=== PATIENT | female | born 1995 | race Caucasian/White ===

== ENCOUNTER 2017-01-18 07:12 | Inpatient (IN) | payer BC ==
--- NOTE | 2017-01-18 09:58 | PCM.LDHP ---
L&D History of Present Illness - General Date of Service: 01/18/17 Admit Problem/Dx: Admission Diagnosis/Problem Admission Diagnosis/Problem Source of Information: Patient History Limitations: Reports: No Limitations - History of Present Illness Introduction:: Patient is a 21 y/o at 39 1/7 wks who presents this AM in labor. Contractions started last night and were very intermittent. Now stronger and slightly more patterned. No LOF. - Related Data Allergies/Adverse Reactions: Allergies Allergy/AdvReac Type Severity Reaction Status Date / Time codeine AdvReac Vomiting Verified 01/18/17 10:37 Home Medications: Home Meds Pnv No.122/Iron/Folic Acid [ Multi Tablet] 1 each PO DAILY 01/18/17 [ History] Past Medical History [employer]GEON History: Reports: , Other (See Below) : 2 Para: 1 - Past Surgical History HEENT Surgical History: Reports: Oral Surgery, Tonsillectomy Female Surgical History: Reports: Section Social & Family History - Family History Family Medical History: Noncontributory - Tobacco Use Smoking Status *Q: Never Smoker - Caffeine Use Caffeine Use: Reports: Coffee Other Caffeine Use: 1 daily - Alcohol Use Alcohol Use History: No - Recreational Drug Use Recreational Drug Use: No H&P Review of Systems - Review of Systems: Review Of Systems: See Below General: Reports: No Symptoms Pulmonary: Reports: No Symptoms Cardiovascular: Reports: No Symptoms Gastrointestinal: Reports: No Symptoms Genitourinary: Reports: No Symptoms Musculoskeletal: Reports: No Symptoms L&D Exam - Exam Exam: See Below - Vital Signs Vital Signs: Last Vital Signs Temp 37.0 C 01/18/17 08:10 Pulse 69 01/18/17 08:10 Resp 18 01/18/17 08:10 BP 124/69 01/18/17 08:10 Pulse Ox 100 01/18/17 08:10 Weight: 72.03 kg - OB Specific Contraction Intensity: Mild to Moderate Movement: Active Heart Tones: Present Heart Tones per Min: 125 Heart Rate (FHR) Variability: Moderate (6-25 bmp) Presentation: Vertex - Carrillo Score Carrillo Score Cervix Position: Posterior Carrillo Score Consistency: Soft Carrillo Score Effacement: >80% Carrillo Score Dilation: 3-4 cm Carrillo Score Infant's Station: -1 ,0 Carrillo Score Total: 9 - Exam General: Alert, Oriented, Cooperative Lungs: Clear to Auscultation, Normal Respiratory Effort Cardiovascular: Regular Rate, Regular Rhythm Abdomen: Soft Genitourinary: Normal external exam Extremities: Normal Inspection Skin: Warm, Dry, Intact - Patient Data Result Diagrams: 01/18/17 10:45 - Problem List (1) 39 weeks gestation of SNOMED Code(s): 61752693 ICD Code: Z3A.39 - 39 WEEKS GESTATION OF Status: Acute Current Visit: Yes (2) History of SNOMED Code(s): 219139950 ICD Code: Z98.891 - HISTORY OF UTERINE SCAR FROM PREVIOUS SURGERY Status: Acute Current Visit: Yes (3) Desires (vaginal after ) trial SNOMED Code(s): 488560614, 776792667 ICD Code: O34.219 - MATERNAL CARE FOR UNSP TYPE SCAR FROM PREVIOUS DEL Status: Acute Current Visit: Yes (4) Rh negative state in antepartum period SNOMED Code(s): 291517730, 061270696 ICD Code: O09.899 - SUPERVISION OF OTHER HIGH RISK PREGNANCIES, UNSP TRIMESTER Status: Acute Current Visit: Yes Qualifiers: Trimester: third trimester Qualified Code(s): O09.893 - Supervision of other high risk pregnancies, third trimester Problem List Initiated/Reviewed/Updated: Yes Orders Last 24hrs: Active Orders 24 hr Category Date Time Status Regular Diet [DIET] Diet 01/18/17 Breakfast Active Assessment/Plan Comment:: 21 y/o at 39 1/7 wks presents in early labor * CBC and T&S * GBS negative, no need for antibiotics * Pain management per patient preference, prefers unmedicated * Continuous monitoring since TOLAC. Aware of risks/benefits of TOLAC * Rh negative, assess baby blood type after delivery to see if additional Rhogam warranted * Anticipate Radha Mina MD
[2017-01-18] MEDS ORDERED: Nalbuphine 20 MG/1 ML Amp IVPUSH PRN (10:34)
[2017-01-18] MEDS ORDERED: Sodium Chloride 0.9% 10 ML Syringe FLUSH PRN (10:34)
[2017-01-18] MEDS ORDERED: Ondansetron 4 MG/2 ML SDV IVPUSH PRN (10:34)
[2017-01-18] MEDS ORDERED: Lactated Ringers 1,000 ML IV SCH (10:45)
[2017-01-18] MEDS ORDERED: Oxytocin/Lactated Ringers 10 UNIT/1,000 ML BAG IV SCH (10:45)
--- NOTE | 2017-01-18 13:13 | PCM.PREANE ---
Preanesthetic Assessment - Anesthesia/Transfusion/Family Hx Anesthesia History: Prior Anesthesia Without Reaction Family History of Anesthesia Reaction: No Transfusion History: No Prior Transfusion(s) Intubation History: History of Difficulty Intubation - Review of Systems General: No Symptoms Pulmonary: No Symptoms Cardiovascular: No Symptoms Gastrointestinal: Other (GERD during ) Neurological: No Symptoms Other: Reports: None - Physical Assessment NPO Status Date: 01/18/17 NPO Status Time: 12:40 O2 Sat by Pulse Oximetry: 100 Respiratory Rate: 18 Vital Signs: Last Vital Signs Temp 37.0 C 01/18/17 08:10 Pulse 69 01/18/17 08:10 Resp 18 01/18/17 08:10 BP 124/69 01/18/17 08:10 Pulse Ox 100 01/18/17 08:10 Height: 1.68 m Weight: 72.03 kg ASA Class: 2 Mental Status: Alert & Oriented x3 Airway Class: Mallampati = 1 Dentition: Reports: Normal Dentition Thyro-Mental Finger Breadths: 3 Mouth Opening Finger Breadths: 3 ROM/Head Extension: Full Lungs: Clear to auscultation, Normal respiratory effort Cardiovascular: Regular Rate, Regular Rhythm - Lab Values: Laboratory Last Values WBC 11.17 K/mm3 (3.98-10.04) H 01/18/17 10:45 RBC 5.22 M/mm3 (3.98-5.22) 01/18/17 10:45 Hgb 14.6 gm/L (11.2-15.7) 01/18/17 10:45 Hct 43.9 % (34.1-44.9) 01/18/17 10:45 MCV 84.1 fl (79.4-94.8) 01/18/17 10:45 MCH 28.0 pg (25.6-32.2) 01/18/17 10:45 MCHC 33.3 g/dl (32.2-35.5) 01/18/17 10:45 RDW Std Deviation 41.6 fL (36.4-46.3) 01/18/17 10:45 Plt Count 311 K/mm3 (182-369) 01/18/17 10:45 MPV 10.4 fl (9.4-12.3) 01/18/17 10:45 Blood Type B NEGATIVE 01/18/17 10:45 Gel Antibody Screen Positive 01/18/17 10:45 - Allergies Allergies/Adverse Reactions: Allergies Allergy/AdvReac Type Severity Reaction Status Date / Time codeine AdvReac Vomiting Verified 01/18/17 10:37 - Blood Blood Available: No Product(s) Available: None - Anesthesia Plan Pre-Op Medication Ordered: None - Acknowledgements Anesthesia Type Planned: Epidural Pt an Appropriate Candidate for the Planned Anesthesia: Yes Alternatives and Risks of Anesthesia Discussed w Pt/Guardian: Yes Pt/Guardian Understands and Agrees with Anesthesia Plan: Yes PreAnesthesia Questionnaire [employer]IS[employer] P[employer]ER History: Reports: , Other (See Below) Other OB/BYN History: x1 - Past Surgical History HEENT Surgical History: Reports: Oral Surgery, Tonsillectomy - SUBSTANCE USE Smoking Status *Q: Never Smoker Second Hand Smoke Exposure: No Recreational Drug Use History: No - HOME MEDS Home Medications: Home Meds Pnv No.122/Iron/Folic Acid [ Multi Tablet] 1 each PO DAILY 01/18/17 [ History] - CURRENT (IN HOUSE) MEDS Current Meds: Current Medications Lactated Ringer's (Ringers, Lactated) 1,000 mls @ 30 mls/hr IV ASDIRECTED LUCIA Oxytocin/Lactated Ringer's (Pitocin In Lr 10 Units/1,000 Ml) 10 unit in 1,000 mls @ 500 mls/hr IV TITRATE LUCIA PRN Reason: Protocol Nalbuphine HCl (Nubain) 10 mg IVPUSH Q2H PRN PRN Reason: Pain (moderate 4-6) Ondansetron HCl (Zofran) 4 mg IVPUSH Q4H PRN PRN Reason: Nausea/Vomiting Sodium Chloride (Saline Flush) 10 ml FLUSH ASDIRECTED PRN PRN Reason: Keep Vein Open
--- NOTE | 2017-01-18 16:39 | PCM.PNLD ---
Labor Progress Note - VS & Meds Vital Signs: Last Vital Signs Temp 37.0 C 01/18/17 08:10 Pulse 69 01/18/17 08:10 Resp 18 01/18/17 13:13 BP 124/69 01/18/17 08:10 Pulse Ox 100 01/18/17 13:13 Active Medications: Current Medications Lactated Ringer's (Ringers, Lactated) 1,000 mls @ 30 mls/hr IV ASDIRECTED LUCIA Oxytocin/Lactated Ringer's (Pitocin In Lr 10 Units/1,000 Ml) 10 unit in 1,000 mls @ 500 mls/hr IV TITRATE LUCIA PRN Reason: Protocol Nalbuphine HCl (Nubain) 10 mg IVPUSH Q2H PRN PRN Reason: Pain (moderate 4-6) Ondansetron HCl (Zofran) 4 mg IVPUSH Q4H PRN PRN Reason: Nausea/Vomiting Sodium Chloride (Saline Flush) 10 ml FLUSH ASDIRECTED PRN PRN Reason: Keep Vein Open - Uterine Contractions Uterine Monitoring Mode: External [place] Contraction Intensity: Moderate Uterine Resting Tone: Soft - Monitoring Monitor Mode: External Ultrasound Heart Rate (FHR) Baseline: 125 Heart Rate (FHR) Variability: Moderate (6-25 bmp) Accelerations: Present, 15x15 Decelerations: None Strip Review: Category I - Vaginal Exam Dilation (cm): 4 Effacement (Percent): 90 Station: 0 Cervical Position: Posterior - Labor Progress (Free Text) Labor Progress: Patient doing well. Contractions still somewhat irregular, but patient doing well. Will continue current observation/management. Assess again in another 3- 4 hours.
--- NOTE | 2017-01-18 19:42 | PCM.PNLD ---
Labor Progress Note - VS & Meds Vital Signs: Last Vital Signs Temp 37.0 C 01/18/17 08:10 Pulse 69 01/18/17 08:10 Resp 18 01/18/17 13:13 BP 124/69 01/18/17 08:10 Pulse Ox 100 01/18/17 13:13 Active Medications: Current Medications Lactated Ringer's (Ringers, Lactated) 1,000 mls @ 30 mls/hr IV ASDIRECTED LUCIA Oxytocin/Lactated Ringer's (Pitocin In Lr 10 Units/1,000 Ml) 10 unit in 1,000 mls @ 500 mls/hr IV TITRATE LUCIA PRN Reason: Protocol Nalbuphine HCl (Nubain) 10 mg IVPUSH Q2H PRN PRN Reason: Pain (moderate 4-6) Ondansetron HCl (Zofran) 4 mg IVPUSH Q4H PRN PRN Reason: Nausea/Vomiting Sodium Chloride (Saline Flush) 10 ml FLUSH ASDIRECTED PRN PRN Reason: Keep Vein Open - Uterine Contractions Uterine Monitoring Mode: External [place] Contraction Intensity: Moderate to Strong Uterine Resting Tone: Soft - Monitoring Monitor Mode: External Ultrasound Heart Rate (FHR) Baseline: 130 Heart Rate (FHR) Variability: Moderate (6-25 bmp) Accelerations: Present, 15x15 Decelerations: None Strip Review: Category I - Vaginal Exam Dilation (cm): 5-6 Effacement (Percent): 90 Station: 0 Cervical Position: Midposition - Labor Progress (Free Text) Labor Progress: Patient doing well. Now 5-6 cm. Continue present management. Defer AROM for now. Tracing reassuring. Some gaps due to patient being up/moving. Radha Mina MD
[2017-01-18] MEDS ORDERED: Lidocaine 1% 50 ML MDV INJECT ONE (19:51)
[2017-01-18] MEDS ORDERED: Lidocaine 1% 50 ML MDV ONE (19:57)
--- NOTE | 2017-01-19 05:30 | PCM.PNLD ---
Labor Progress Note - VS & Meds Vital Signs: Last Vital Signs Temp 37.0 C 01/18/17 08:10 Pulse 69 01/18/17 08:10 Resp 18 01/18/17 13:13 BP 124/69 01/18/17 08:10 Pulse Ox 100 01/18/17 13:13 Active Medications: Current Medications Lactated Ringer's (Ringers, Lactated) 1,000 mls @ 30 mls/hr IV ASDIRECTED LUCIA Oxytocin/Lactated Ringer's (Pitocin In Lr 10 Units/1,000 Ml) 10 unit in 1,000 mls @ 500 mls/hr IV TITRATE LUCIA PRN Reason: Protocol Nalbuphine HCl (Nubain) 10 mg IVPUSH Q2H PRN PRN Reason: Pain (moderate 4-6) Ondansetron HCl (Zofran) 4 mg IVPUSH Q4H PRN PRN Reason: Nausea/Vomiting Sodium Chloride (Saline Flush) 10 ml FLUSH ASDIRECTED PRN PRN Reason: Keep Vein Open Discontinued Medications Lidocaine HCl (Xylocaine 1%) 5 ml INJECT ONETIME ONE Stop: 01/18/17 19:52 Lidocaine HCl (Xylocaine 1%) Confirm Administered Dose 50 ml .ROUTE .STK-MED ONE Stop: 01/18/17 19:58 Last Admin: 01/18/17 23:04 Dose: Not Given - Uterine Contractions Uterine Monitoring Mode: External [place] Contraction Intensity: Strong Uterine Resting Tone: Soft - Monitoring Monitor Mode: External Ultrasound Heart Rate (FHR) Baseline: 135 Heart Rate (FHR) Variability: Moderate (6-25 bmp) Accelerations: Present, 15x15 Decelerations: None Strip Review: Category I - Vaginal Exam Dilation (cm): 9 Effacement (Percent): 90 Station: 1 Cervical Position: Anterior - Labor Progress (Free Text) Labor Progress: Have been in contact with L&D nurses overnight and assessing FHR tracing. At 2330 patient still about 5-6 cm and declined AROM. At 0230 she was felt to be 7-8 cm. At 0430 she was thought to be anterior lip. Checked by myself at about 0515 and thought to be 9 cm. AROM done with release of clear fluid. FHR has been reassuring all night. Good accelerations, no decelerations.
[2017-01-19] MEDS: Ibuprofen 600 MG Tab PO PRN ×2 (09:05→17:39)
--- NOTE | 2017-01-19 09:33 | PCM.DEL ---
L & D Note - General Info Date of Service: 01/19/17 - Delivery Note Labor: spontaneous Delivery Outcome: Livebirth Delivery Method: Spontaneous Vaginal Delivery Delivery Mode: Spontaneous Presentation: Left Occiput Anterior (MARYBEL) Nuchal cord: none Anesthesia Type: None Anesthetic: lidocaine (xylocaine) 1% plain Amniotic Fluid Description: Clear Episiotomy Type: None Laceration: 2nd degree Suture type: vicryl Suture size: 2-0 Placenta: spontaneous Cord: 3 vessels Estimated blood loss: 300 Resuscitation needed: Yes : bulb syringe, stimulated, warmed, blanket used, warmer used Score 1 min: 8 Score 5 min: 9 Delivery Comments (Free Text/Narrative):: Patient found to be complete and began pushing. With maternal pushing effort head delivered from an MARYBEL presentation. No nuchal cord present. With gentle downward traction the shoulders and body delivered. Infant placed on maternal abdomen. Cord clamped and cut. Cord blood obtained. Inspection of perineum done with a 2nd degree laceration noted. This was repaired with a 2 -0 vicryl in the typical fashion while awaiting separation of the placenta. At ~25 minutes placenta not yet delivered. Exam showed it to be in the cervix. A hand was placed into the vaginal and placenta grasped within the cervix and extracted. - Patient Data Vitals - most recent: Last Vital Signs Temp 37.0 C 01/18/17 08:10 Pulse 69 01/18/17 08:10 Resp 18 01/18/17 13:13 BP 124/69 01/18/17 08:10 Pulse Ox 100 01/18/17 13:13 Weight - most recent: 72.03 kg Lab Results last 24 hrs: Laboratory Results - last 24 hr 01/18/17 01/18/17 Range/Units 10:45 10:45 WBC 11.17 H (3.98-10.04) K/mm3 RBC 5.22 (3.98-5.22) M/mm3 Hgb 14.6 (11.2-15.7) gm/L Hct 43.9 (34.1-44.9) % MCV 84.1 (79.4-94.8) fl MCH 28.0 (25.6-32.2) pg MCHC 33.3 (32.2-35.5) g/dl RDW Std Deviation 41.6 (36.4-46.3) fL Plt Count 311 (182-369) K/mm3 MPV 10.4 (9.4-12.3) fl Blood Type B NEGATIVE Gel Antibody Screen Positive Med Orders - Current: Current Medications Lactated Ringer's (Ringers, Lactated) 1,000 mls @ 30 mls/hr IV ASDIRECTED LUCIA Oxytocin/Lactated Ringer's (Pitocin In Lr 10 Units/1,000 Ml) 10 unit in 1,000 mls @ 500 mls/hr IV TITRATE LUCIA PRN Reason: Protocol Last Admin: 01/19/17 08:20 Dose: 500 mls/hr, 500 mls/hr Nalbuphine HCl (Nubain) 10 mg IVPUSH Q2H PRN PRN Reason: Pain (moderate 4-6) Ondansetron HCl (Zofran) 4 mg IVPUSH Q4H PRN PRN Reason: Nausea/Vomiting Sodium Chloride (Saline Flush) 10 ml FLUSH ASDIRECTED PRN PRN Reason: Keep Vein Open Discontinued Medications Lidocaine HCl (Xylocaine 1%) 5 ml INJECT ONETIME ONE Stop: 01/18/17 19:52 Last Admin: 01/19/17 08:21 Dose: 50 ml Lidocaine HCl (Xylocaine 1%) Confirm Administered Dose 50 ml .ROUTE .STK-MED ONE Stop: 01/18/17 19:58 Last Admin: 01/18/17 23:04 Dose: Not Given - Problem List & Annotations (1) 39 weeks gestation of SNOMED Code(s): 30600025 Code(s): Z3A.39 - 39 WEEKS GESTATION OF Status: Acute Current Visit: Yes (2) History of SNOMED Code(s): 706128129 Code(s): Z98.891 - HISTORY OF UTERINE SCAR FROM PREVIOUS SURGERY Status: Acute Current Visit: Yes (3) Desires (vaginal after ) trial SNOMED Code(s): 942440485, 692982911 Code(s): O34.219 - MATERNAL CARE FOR UNSP TYPE SCAR FROM PREVIOUS DEL Status: Acute Current Visit: Yes (4) Rh negative state in antepartum period SNOMED Code(s): 744941282, 932345626 Code(s): O09.899 - SUPERVISION OF OTHER HIGH RISK PREGNANCIES, UNSP TRIMESTER Status: Acute Current Visit: Yes Qualifiers: Trimester: third trimester Qualified Code(s): O09.893 - Supervision of other high risk pregnancies, third trimester (5) (vaginal after ) SNOMED Code(s): 733820304 Code(s): O34.219 - MATERNAL CARE FOR UNSP TYPE SCAR FROM PREVIOUS DEL Status: Acute Current Visit: Yes - Problem List Review Problem List Initiated/Reviewed/Updated: Yes - My Orders Last 24 Hours: My Active Orders 01/18/17 10:34 Patient Status [ADT] Routine Activity as Tolerated [RC] PFP Communication Order [RC] ASDIRECTED Notify Provider [RC] PFP Notify Provider [RC] PRN Peripheral IV Care [RC] . DIRECTED Vital Signs [RC] PER UNIT ROUTINE Nalbuphine [Nubain] 10 mg IVPUSH Q2H PRN Ondansetron [Zofran] 4 mg IVPUSH Q4H PRN Sodium Chloride 0.9% [Saline Flush] 10 ml FLUSH ASDIRECTED PRN Electronic Heart Tones Ext w TOCO [WOMSER] Routine Peripheral IV Insertion Adult [OM.PC] Routine Resuscitation Status Routine 01/18/17 10:45 ANTIBODY IDENTIFICATION [BBK] Routine PATIENT RETYPE [BBK] Routine TYPE AND SCREEN [BBK] Routine Lactated Ringers [Ringers, Lactated] 1,000 ml IV ASDIRECTED Oxytocin/Lactated Ringers [Pitocin in LR 10 Units/1,000 ML] 10 unit in 1,000 ml IV TITRATE 01/19/17 Breakfast Regular Diet [DIET] - Assessment Assessment:: 21 y/o G2 now P2002 PPD#0 from at 39 2/7 wks - Plan Plan:: * Routine cares * Encouraged breast feeding * Rh negative, assess baby blood type after delivery * Discharge home in 1-2 days Radha Mina MD
[2017-01-19] MEDS ORDERED: Benzocaine/Menthol 20%-0.5% Spray 56 GM Canister TOP PRN (09:40)
[2017-01-19] MEDS ORDERED: Witch Hazel Medicated Pads 100/Jar TOP PRN (09:40)
[2017-01-19] MEDS ORDERED: Lanolin 100% Cream 7 GM Tube TOP PRN (09:40)
[2017-01-19] MEDS ORDERED: Oxytocin/Lactated Ringers 10 UNIT/1,000 ML BAG IV ONE (10:45)
[2017-01-19] MEDS ORDERED: Oxytocin/Lactated Ringers 10 UNIT/1,000 ML BAG IV SCH (10:55)
[2017-01-19] MEDS: Acetaminophen 325 MG Tab PO PRN ×2 (12:38→22:34)
[2017-01-19] MEDS: Docusate Sodium 100 MG Cap PO PRN (17:39)
--- NOTE | 2017-01-20 00:59 | PCM.PNPP ---
- General Info Date of Service: 01/20/17 Functional Status: Reports: pain controlled, tolerating diet, ambulating, urinating - Review of Systems General: Reports: No Symptoms Pulmonary: Reports: no symptoms Cardiovascular: Reports: No Symptoms Gastrointestinal: Reports: No symptoms Genitourinary: Reports: no symptoms Musculoskeletal: Reports: no symptoms - Patient Data Vital Signs - most recent: Last Vital Signs Temp 36.3 C 01/19/17 20:01 Pulse 90 01/19/17 20:01 Resp 18 01/19/17 20:01 BP 111/64 01/19/17 20:01 Pulse Ox 100 01/19/17 20:01 Weight - most recent: 72.03 kg I&O - last 24 hours: Intake & Output 01/19/17 01/19/17 01/20/17 14:59 22:59 06:59 Intake Total 1999 120 Balance 1999 120 Lab Results - last 24 hrs: Laboratory Results - last 24 hr 01/18/17 Range/Units 10:45 Blood Type B NEGATIVE Gel Antibody Screen Positive Antibody Identification Anti-D Med Orders - Current: Current Medications Acetaminophen (Tylenol) 650 mg PO Q4H PRN PRN Reason: mild pain or fever Last Admin: 01/19/17 22:34 Dose: 650 mg Benzocaine/Menthol (Dermoplast Pain Relief [place]) 0 gm TOP ASDIRECTED PRN PRN Reason: Perineal Comfort Measure Last Admin: 01/19/17 09:48 Dose: 56 gm Docusate Sodium (Colace) 100 mg PO BID PRN PRN Reason: Constipation Last Admin: 01/19/17 17:39 Dose: 100 mg Emollient Ointment (Lansinoh Hpa) 0 gm TOP ASDIRECTED PRN PRN Reason: Sore Nipples Oxytocin/Lactated Ringer's (Pitocin In Lr 10 Units/1,000 Ml) 10 unit in 1,000 mls @ 500 mls/hr IV ASDIRECTED LUCIA PRN Reason: Protocol Last Admin: 01/19/17 10:55 Dose: 500 mls/hr, 500 mls/hr Ibuprofen (Motrin) 600 mg PO Q6H PRN PRN Reason: Mild pain or fever Last Admin: 01/19/17 17:39 Dose: 600 mg Witch [place] (Tucks) 1 pad TOP ASDIRECTED PRN PRN Reason: Hemorrhoid pain Last Admin: 01/19/17 09:48 Dose: 1 tub Discontinued Medications Lactated Ringer's (Ringers, Lactated) 1,000 mls @ 30 mls/hr IV ASDIRECTED LUCIA Oxytocin/Lactated Ringer's (Pitocin In Lr 10 Units/1,000 Ml) 10 unit in 1,000 mls @ 500 mls/hr IV TITRATE LUCIA PRN Reason: Protocol Last Admin: 01/19/17 08:20 Dose: 500 mls/hr, 500 mls/hr Oxytocin/Lactated Ringer's (Pitocin In Lr 10 Units/1,000 Ml) Confirm Administered Dose 10 unit in 1,000 mls @ as directed IV .[employer] ONE Stop: 01/19/17 10:46 Last Admin: 01/19/17 11:33 Dose: Not Given Lidocaine HCl (Xylocaine 1%) 5 ml INJECT ONETIME ONE Stop: 01/18/17 19:52 Last Admin: 01/19/17 08:21 Dose: 50 ml Lidocaine HCl (Xylocaine 1%) Confirm Administered Dose 50 ml .ROUTE .STK-MED ONE Stop: 01/18/17 19:58 Last Admin: 01/18/17 23:04 Dose: Not Given Nalbuphine HCl (Nubain) 10 mg IVPUSH Q2H PRN PRN Reason: Pain (moderate 4-6) Ondansetron HCl (Zofran) 4 mg IVPUSH Q4H PRN PRN Reason: Nausea/Vomiting Sodium Chloride (Saline Flush) 10 ml FLUSH ASDIRECTED PRN PRN Reason: Keep Vein Open - Infant Interaction Disposition, : [place] in Room with Family Infant Interaction: Holding Infant Feeding: Breastfed ; Nursed Well Support Person: - Recovery Exam Fundal Tone: Firm Fundal Level: 2 Fingerbreadths Below Umbilicus Fundal Placement: Midline Lochia Amount: Small, Moderate Lochia Color: Rubra/Red Perineum Description: Intact, Minimal Bruising/Swelling Other Perinuem Description: 2nd degree with repair Episiotomy/Laceration: Approximated Bladder Status: Voiding Urinary Elimination: Voided - Exam General: alert, oriented, cooperative Abdomen: soft, no tenderness Extremities: no edema Skin: warm, dry, intact - Problem List & Annotations (1) 39 weeks gestation of SNOMED Code(s): 23832087 Code(s): Z3A.39 - 39 WEEKS GESTATION OF Status: Acute Current Visit: Yes (2) History of SNOMED Code(s): 204681304 Code(s): Z98.891 - HISTORY OF UTERINE SCAR FROM PREVIOUS SURGERY Status: Acute Current Visit: Yes (3) Desires (vaginal after ) trial SNOMED Code(s): 172954999, 007964370 Code(s): O34.219 - MATERNAL CARE FOR UNSP TYPE SCAR FROM PREVIOUS DEL Status: Acute Current Visit: Yes (4) Rh negative state in antepartum period SNOMED Code(s): 057523273, 234559762 Code(s): O09.899 - SUPERVISION OF OTHER HIGH RISK PREGNANCIES, UNSP TRIMESTER Status: Acute Current Visit: Yes Qualifiers: Trimester: third trimester Qualified Code(s): O09.893 - Supervision of other high risk pregnancies, third trimester (5) (vaginal after ) SNOMED Code(s): 215925013 Code(s): O34.219 - MATERNAL CARE FOR UNSP TYPE SCAR FROM PREVIOUS DEL Status: Acute Current Visit: Yes - Problem List Review Problem List Initiated/Reviewed/Updated: Yes - My Orders Last 24 Hours: My Active Orders 01/19/17 09:40 Activity as Tolerated [RC] PER UNIT ROUTINE Vital Signs [RC] 04,12,20 Acetaminophen [Tylenol] 650 mg PO Q4H PRN Benzocaine/Menthol [Dermoplast Pain Relief [place]] See Dose Instructions TOP ASDIRECTED PRN Docusate Sodium [Colace] 100 mg PO BID PRN Ibuprofen [Motrin] 600 mg PO Q6H PRN Lanolin [Lansinoh HPA] See Dose Instructions TOP ASDIRECTED PRN Witch [place] [Tucks] 1 pad TOP ASDIRECTED PRN Assess Lochia [WOMSER] Per Unit Routine Assess Uterine Involution [WOMSER] Per Unit Routine Breast Pump [WOMSER] Per Unit Routine Ice Therapy [OM.PC] Per Unit Routine Perineal Care [OM.PC] Per Unit Routine Peripheral IV Discontinue [OM.PC] Routine Sitz Bath [OM.PC] Per Unit Routine 01/19/17 09:45 Heat Therapy [OM.PC] PRN 01/19/17 10:55 Oxytocin/Lactated Ringers [Pitocin in LR 10 Units/1,000 ML] 10 unit in 1,000 ml IV ASDIRECTED 01/19/17 Breakfast Regular Diet [DIET] 01/20/17 09:45 Heat Therapy [OM.PC] PRN - Assessment Assessment:: 21 y/o G2 now P2002 PPD#1 from at 39 2/7 wks - Plan Plan:: * Routine cares * Encouraged breast feeding * Rh negative, baby also Rh negative. No need for additional Rhogam * Discharge home today Radha Mina MD
--- NOTE | 2017-01-20 01:04 | PCM.DCSUM1 ---
Discharge Summary - Discharge Data Discharge Date: 01/20/17 Discharge Disposition: Home, Self-Care 01 Condition: Good - Discharge Diagnosis/Problem(s) (1) 39 weeks gestation of SNOMED Code(s): 04779940 ICD Code: Z3A.39 - 39 WEEKS GESTATION OF Status: Acute Current Visit: Yes (2) History of SNOMED Code(s): 207613889 ICD Code: Z98.891 - HISTORY OF UTERINE SCAR FROM PREVIOUS SURGERY Status: Acute Current Visit: Yes (3) Desires (vaginal after ) trial SNOMED Code(s): 000542687, 754655005 ICD Code: O34.219 - MATERNAL CARE FOR UNSP TYPE SCAR FROM PREVIOUS DEL Status: Acute Current Visit: Yes (4) Rh negative state in antepartum period SNOMED Code(s): 024193193, 172733061 ICD Code: O09.899 - SUPERVISION OF OTHER HIGH RISK PREGNANCIES, UNSP TRIMESTER Status: Acute Current Visit: Yes Qualifiers: Trimester: third trimester Qualified Code(s): O09.893 - Supervision of other high risk pregnancies, third trimester (5) (vaginal after ) SNOMED Code(s): 671327492 ICD Code: O34.219 - MATERNAL CARE FOR UNSP TYPE SCAR FROM PREVIOUS DEL Status: Acute Current Visit: Yes - Patient Summary/Data Complications: None Consults: None Recommended Follow-up Testing/Procedures: Follow up in 5-6 weeks for exam Hospital Course: Patient is a 21 y/o at 39 1/7 wks presented in labor. She had a history of prior and desired TOLAC. She progressed slowly, but consistently to complete dilation without the need for augmentation and underwent an uncomplicated . See delivery note. she did well and was discharged home on PPD#1 - Patient Instructions Diet: Regular Diet as Tolerated Activity: As Tolerated Activity, Other: Pelvic Rest for 6 weeks Driving: May Drive Today Showering/Bathing: May Shower Showering/Bathing, Other: May Bathe Notify Provider of: Fever, Increased Pain, Swelling and Redness, Drainage, Nausea and/or Vomiting - Discharge Plan Home Medications: Home Meds Pnv No.122/Iron/Folic Acid [ Multi Tablet] 1 each PO DAILY 01/18/17 [ History] Docusate Sodium [Colace] 100 mg PO BID PRN #0 cap 01/19/17 [Rx] Ibuprofen [IJD: Ibuprofen] 600 mg PO Q6H PRN #0 tablet 01/19/17 [Rx] Referrals: Radha Mina MD [Physician] - (5-6 weeks for check) - Discharge Summary/Plan Comment DC Time >30 min.: No - Patient Data Vitals - Most Recent: Last Vital Signs Temp 36.3 C 01/19/17 20:01 Pulse 90 01/19/17 20:01 Resp 18 01/19/17 20:01 BP 111/64 01/19/17 20:01 Pulse Ox 100 01/19/17 20:01 Weight - Most Recent: 72.03 kg I&O - Last 24 hours: Intake & Output 01/19/17 01/19/17 01/20/17 14:59 22:59 06:59 Intake Total 1999 120 Balance 1999 120 Lab Results - Last 24 hrs: Laboratory Results - last 24 hr 01/18/17 Range/Units 10:45 Blood Type B NEGATIVE Gel Antibody Screen Positive Antibody Identification Anti-D Med Orders - Current: Current Medications Acetaminophen (Tylenol) 650 mg PO Q4H PRN PRN Reason: mild pain or fever Last Admin: 01/19/17 22:34 Dose: 650 mg Benzocaine/Menthol (Dermoplast Pain Relief [place]) 0 gm TOP ASDIRECTED PRN PRN Reason: Perineal Comfort Measure Last Admin: 01/19/17 09:48 Dose: 56 gm Docusate Sodium (Colace) 100 mg PO BID PRN PRN Reason: Constipation Last Admin: 01/19/17 17:39 Dose: 100 mg Emollient Ointment (Lansinoh Hpa) 0 gm TOP ASDIRECTED PRN PRN Reason: Sore Nipples Oxytocin/Lactated Ringer's (Pitocin In Lr 10 Units/1,000 Ml) 10 unit in 1,000 mls @ 500 mls/hr IV ASDIRECTED LUCIA PRN Reason: Protocol Last Admin: 01/19/17 10:55 Dose: 500 mls/hr, 500 mls/hr Ibuprofen (Motrin) 600 mg PO Q6H PRN PRN Reason: Mild pain or fever Last Admin: 01/19/17 17:39 Dose: 600 mg Witch [place] (Tucks) 1 pad TOP ASDIRECTED PRN PRN Reason: Hemorrhoid pain Last Admin: 01/19/17 09:48 Dose: 1 tub Discontinued Medications Lactated Ringer's (Ringers, Lactated) 1,000 mls @ 30 mls/hr IV ASDIRECTED LUCIA Oxytocin/Lactated Ringer's (Pitocin In Lr 10 Units/1,000 Ml) 10 unit in 1,000 mls @ 500 mls/hr IV TITRATE LUCIA PRN Reason: Protocol Last Admin: 01/19/17 08:20 Dose: 500 mls/hr, 500 mls/hr Oxytocin/Lactated Ringer's (Pitocin In Lr 10 Units/1,000 Ml) Confirm Administered Dose 10 unit in 1,000 mls @ as directed IV .STK-MED ONE Stop: 01/19/17 10:46 Last Admin: 01/19/17 11:33 Dose: Not Given Lidocaine HCl (Xylocaine 1%) 5 ml INJECT ONETIME ONE Stop: 01/18/17 19:52 Last Admin: 01/19/17 08:21 Dose: 50 ml Lidocaine HCl (Xylocaine 1%) Confirm Administered Dose 50 ml .ROUTE .STK-MED ONE Stop: 01/18/17 19:58 Last Admin: 01/18/17 23:04 Dose: Not Given Nalbuphine HCl (Nubain) 10 mg IVPUSH Q2H PRN PRN Reason: Pain (moderate 4-6) Ondansetron HCl (Zofran) 4 mg IVPUSH Q4H PRN PRN Reason: Nausea/Vomiting Sodium Chloride (Saline Flush) 10 ml FLUSH ASDIRECTED PRN PRN Reason: Keep Vein Open *Q Meaningful Use (DIS) - VTE *Q VTE Criteria *Q: - Stroke *Q Stroke Criteria *Q: - AMI *Q AMI Criteria *Q:
[2017-01-20] MEDS: Ibuprofen 600 MG Tab PO PRN ×2 (01:45→09:50)
[2017-01-20 04:54] VITALS: BP 91/49
[2017-01-20] MEDS: Docusate Sodium 100 MG Cap PO PRN (09:50)
== END 2017-01-20 11:10 | disposition home or self-care (01) | DRG 560 ==
LOC: JD.OBCHECK 07:12 → JD.OB 07:17 → JD.OBCHECK 10:33 → JD.OB 10:34 → OBSVTOIN 01-19 08:20
PROVIDERS: ADMIT Obstetrics & Gynecology; ATTEND Obstetrics & Gynecology
PROC: 10E0XZZ Delivery of Products of Conception, External Approach (ICD-10-PCS; principal; 2017-01-19)
PROC: 10907ZC Drainage of Amniotic Fluid, Therapeutic from Products of Conception, Via Natural or Artificial Opening (ICD-10-PCS; 2017-01-19)
DX: O34.211 Maternal care for low transverse scar from previous cesarean delivery (principal); N85.8 Other specified noninflammatory disorders of uterus; O70.1 Second degree perineal laceration during delivery; Z3A.39 39 weeks gestation of pregnancy; Z37.0 Single live birth; Z88.8 Allergy status to other drugs, medicaments and biological substances
CPT/HCPCS: 36415; 85027; 86850; 86870; 86900; 86901; A9270-GY; J2590